=== PATIENT | female | born 2000 | race Caucasian/White ===

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

== ENCOUNTER 2018-11-08 18:25 | Emergency (ER) | payer SELFPAY ==
[~2018-11-08 18:25] MED LIST changes: +DICY10CA40 PO; +IBUP-1541 PO; -IBUP400T22 PO; +ONDA4TAB14 PO; +OSEL75CA23 PO; -OSLT75C PO
== END 2018-11-08 18:40 | disposition left against medical advice (07) ==
LOC: E/R 18:25
DX: Z53.21 Procedure and treatment not carried out due to patient leaving prior to being seen by health care provider (principal)

== ENCOUNTER 2018-11-08 19:55 | Inpatient (IN) | payer OTHER ==
[~2018-11-08] VITALS: Ht 174 cm; Wt 94.5 kg
[2018-11-08] MEDS ORDERED: SOD CHLORIDE 0.9% 1,000 ML IV STA (20:01)
[2018-11-08 20:06] VITALS: Ht 174 cm; Wt 94.5 kg
[2018-11-08] MEDS ORDERED: ACETAMINOPHEN 325 MG TAB PO PRN (20:30)
[2018-11-08] MEDS ORDERED: ONDANSETRON 4 MG INJ IV PRN (20:30)
--- NOTE | 2018-11-08 22:44 | ERD ---
ER Documentation Chief Complaint Chief Complaint PRATIK Cannon from [facility],miscarriage HPI Patient is a 18-year-old female with no medical problems who presents with vaginal bleeding. The patient was brought in by ambulance. She was seen initially at [facility] emergency department and had previously delivered at 19 weeks 1 day fetus that was nonviable. The ER doc admission delivered the placenta as well but they do not have OB admission to the patient was transferred for higher level of care. The patient said that she delivered the fetus at 7 [address] in [address] car. She is still having vaginal bleeding. She is a and her previous ended in miscarriage as well. ROS All systems reviewed and are negative except as per history of present illness. Medications Home Meds Discontinued Scripts Ondansetron (Ondansetron Odt) 4 Mg Tab.rapdis, 4 MG PO Q8 PRN for NAUSEA AND/OR VOMITING, #30 TAB Prov:AMERICA COUGHLIN NP 11/04/16 Ibuprofen* (Motrin*) 600 Mg Tab, 600 MG PO Q6H PRN for PAIN AND OR ELEVATED TEMP, #30 TAB Prov:AMERICA COUGHLIN NP 11/04/16 Dicyclomine HCl (Dicyclomine HCl) 10 Mg Capsule, 20 MG PO QID, #20 CAP Prov:AMERICA COUGHLIN NP 11/04/16 Acetaminophen* (Tylophen*) 500 Mg Capsule, 1 CAP PO Q6H PRN for PAIN AND OR ELEVATED TEMP, #20 CAP Prov:AMERICA COUGHLIN NP 10/31/16 Ibuprofen* (Motrin*) 600 Mg Tab, 600 MG PO Q6H PRN for PAIN AND OR ELEVATED TEMP, #30 TAB Prov:AMERICA COUGHLIN NP 10/31/16 Oseltamivir Phosphate* (Tamiflu*) 75 Mg Capsule, 75 MG PO BID for 5 Days, CAP Prov:AMERICA COUGHLIN GATE MORTISER OPERATOR 10/31/16 Ibuprofen* (Ibuprofen*) 400 Mg Tablet, 400 MG PO Q6H PRN for PAIN, #30 TAB Prov:CASSIDY BLANCA PA-C 11/21/15 Allergies Allergies: Coded Allergies: No Known Drug Allergies (Verified Allergy, Unknown, 11/08/18) PMhx/Soc Medical and Surgical Hx: pt denies Medical Hx, pt denies Surgical Hx History of Surgery: No Anesthesia Reaction: No Hx Neurological Disorder: No Hx Respiratory Disorders: No Hx Cardiac Disorders: No Hx Psychiatric Problems: No Hx Miscellaneous Medical Probl: No (previous miscarriage) Hx Alcohol Use: No Hx Substance Use: No Hx Tobacco Use: No Smoking Status: Never smoker FmHx Family History: No diabetes Physical Exam Vitals Vital Signs Date Temp Pulse Resp B/P (MAP) Pulse Ox O2 O2 Flow FiO2 Time Delivery Rate 11/08/18 113 26 124/71 99 Room Air 20:24 (88) 11/08/18 98.7 116 17 124/71 100 20:06 (88) Physical Exam Const: No acute distress Head: Atraumatic Eyes: Normal Conjunctiva ENT: Normal External Ears, Nose and Mouth. Neck: Full range of motion. No meningismus. Resp: Clear to auscultation bilaterally Cardio: Regular rate and rhythm, no murmurs Abd: Soft, non tender, non distended. Normal bowel sounds Skin: No petechiae or rashes Back: No midline or flank tenderness Ext: No cyanosis, or edema Neur: Awake and alert : Vaginal bleeding Result Diagram: 11/08/18 2017 11/08/18 2017 Results 24 hrs Laboratory Tests Test 11/08/18 20:17 White Blood Count 17.7 10^3/ul Red Blood Count 3.66 10^6/ul Hemoglobin 10.8 g/dl Hematocrit 31.6 % Mean Corpuscular Volume 86.3 fl Mean Corpuscular Hemoglobin 29.5 pg Mean Corpuscular Hemoglobin Concent 34.2 g/dl Red Cell Distribution Width 13.2 % Platelet Count 177 10^3/UL Mean Platelet Volume 10.2 fl Immature Granulocytes % 0.600 % Neutrophils % 86.1 % Lymphocytes % 8.5 % Monocytes % 4.5 % Eosinophils % 0.1 % Basophils % 0.2 % Nucleated Red Blood Cells % 0.0 /100WBC Immature Granulocytes # 0.100 10^3/ul Neutrophils # 15.3 10^3/ul Lymphocytes # 1.5 10^3/ul Monocytes # 0.8 10^3/ul Eosinophils # 0.0 10^3/ul Basophils # 0.0 10^3/ul Nucleated Red Blood Cells # 0.0 10^3/ul Sodium Level 139 mmol/L Potassium Level 3.8 mmol/L Chloride Level 106 mmol/L Carbon Dioxide Level 20 mmol/L Anion Gap 13 Blood Urea Nitrogen 10 mg/dl Creatinine 0.56 mg/dl Est Glomerular Filtrat Rate mL/min > 60 mL/min Glucose Level 90 mg/dl Calcium Level 8.8 mg/dl Total Bilirubin 0.3 mg/dl Direct Bilirubin 0.00 mg/dl Indirect Bilirubin 0.3 mg/dl Aspartate Amino Transf (AST/SGOT) 18 IU/L Alanine Aminotransferase (ALT/SGPT) 27 IU/L Alkaline Phosphatase 73 IU/L Total Protein 7.0 g/dl Albumin 3.7 g/dl Globulin 3.30 g/dl Albumin/Globulin Ratio 1.12 Beta HCG, Quantitative 5045.4 mIU/ml Current Medications Medications Dose Sig/Galen Start Time Status Last (Trade) Ordered Route PRN Stop Time Admin Dose Reason Admin Sodium 1,000 ml @ Q1H STAT 11/08/18 DC 11/08/18 Chloride 1,000 mls/hr IV 20:01 20:21 11/08/18 21:00 Ondansetron 4 mg BRIDGE ORDER 11/08/18 HCl (Zofran PRN IV 20:30 Inj) NAUSEA/VOMITI 11/09/18 20:29 NG 650 mg ER BRIDGE 11/08/18 Acetaminophen PRN PO 20:30 (Tylenol .MILD PAIN 11/09/18 20:29 Tab) 1-3 OR TEMP Procedures/MDM Ultrasound shows retained products of conception per radiology. Patient is a 18-year-old female who delivered a nonviable 19-week fetus and is now having hemorrhage. She has retained products of conception. She will be admitted to the care of Dr. Hester the OB doctor supervisor electronic testing. She will be admitted and given fluids. She will likely need D&C. Critical Care: Time: 35 minutes excluding all billable procedures. Treatments/Evaluations: Close monitoring and treatment of unstable vital signs, cardiorespiratory, and neurologic status, while maintaining tight balance of fluid, respiratory, and cardiac interventions. Departure Diagnosis: Primary Impression: hemorrhage hemorrhage type: unspecified Qualified Codes: O72.1 - Other immediate hemorrhage Additional Impression: Retained products of conception Condition: Serious TWYLA ALEXANDER MD Nov 08, 2018 22:44
[2018-11-09] VITALS (17 sets, daily range): BP systolic 102–117; BP diastolic 54–65; PULSE 74–122; RESP 14–88
[2018-11-09] MEDS ORDERED: MISOPROSTOL 200 MCG TAB PO ONE (01:00)
--- NOTE | 2018-11-09 05:34 | HP ---
Date/Time of Note Date/Time of Note DATE: 11/09/18 TIME: 05:16 Assessment/Plan VTE Prophylaxis SCD contraindicated: low risk/ambulating Pharmacological prophylaxis: other (Low risk she is ambulating) Pharm contraindication: low risk/ambulating, other Lines/Catheters IV Catheter Type (from Nrs): Saline Lock Assessment/Plan Assessment/Plan 18 years old 2 para [id number] with incomplete at the 19+ weeks. -Afebrile, vital signs stable -Blood type O+ -Treatment options with risk-benefit and alternatives discussed in detail with patient. She expressed understanding. Cytotec given 400 mcg given. Repeat ultrasound, if still there is product of conception, dilation and suction curettaged with be performed. Risks including but not limited to bleeding, infection, and injury to other organs if uterine perforation occurs(bowel, bladder, ureter, vessels, nerve) incomplete procedure, risk of scar and peritoneal formation, blood transfusion, blood transfusion related infection discussed with patient in detail. She expressed understanding. All of her questions answered. Result Diagram: 11/08/18201611/08/182016 Results 24hrs Laboratory Tests Test 11/08/18 20:17 White Blood Count 17.7 #H Red Blood Count 3.66 L Hemoglobin 10.8 L Hematocrit 31.6 L Mean Corpuscular Volume 86.3 Mean Corpuscular Hemoglobin 29.5 Mean Corpuscular Hemoglobin Concent 34.2 Red Cell Distribution Width 13.2 Platelet Count 177 Mean Platelet Volume 10.2 Immature Granulocytes % 0.600 H Neutrophils % 86.1 H Lymphocytes % 8.5 L Monocytes % 4.5 Eosinophils % 0.1 Basophils % 0.2 Nucleated Red Blood Cells % 0.0 Immature Granulocytes # 0.100 H Neutrophils # 15.3 H Lymphocytes # 1.5 Monocytes # 0.8 Eosinophils # 0.0 Basophils # 0.0 Nucleated Red Blood Cells # 0.0 Sodium Level 139 Potassium Level 3.8 Chloride Level 106 Carbon Dioxide Level 20 L Anion Gap 13 Blood Urea Nitrogen 10 Creatinine 0.56 Est Glomerular Filtrat Rate mL/min > 60 Glucose Level 90 Calcium Level 8.8 Total Bilirubin 0.3 Direct Bilirubin 0.00 Indirect Bilirubin 0.3 Aspartate Amino Transf (AST/SGOT) 18 Alanine Aminotransferase (ALT/SGPT) 27 Alkaline Phosphatase 73 Total Protein 7.0 Albumin 3.7 Globulin 3.30 H Albumin/Globulin Ratio 1.12 Beta HCG, Quantitative 5045.4 HPI/ROS Admit Date/Time Admit Date/Time 11/09/2018 Hx of Present Illness 18 years old 2 para 0020 presented to emergency department with vaginal bleeding. The patient was brought by ambulance. She was approximately 19 weeks , had vaginal bleeding last evening. She delivered a nonviable fetus at [address] in the [address] of [facility] emergency department. She delivered placenta at the emergency department there. There is no CERTIFIED ORTHOPTIST call at [facility], patient transferred for further evaluation to [facility]. She currently denies severe vaginal bleeding. She also states that the first also had spontaneous miscarriage at 7 weeks. She denies fever, nausea, vomiting, shortness of breath, chest pain, v isual changes. Ultrasound performed in the emergency department: The uterus measures 13.2 x 6.7 x 7.6 cm. The thickness of the endometrium equals 3.7 cm. The endometrium is heterogeneous and there is vascular flow in the endometrium suggestive of retained products of conception. The right ovary measures 2.5 x 1.8 x 2.7 cm and is unremarkable. The left ovary measures 2.5 x 1.8 x 3.1 cm and is unremarkable. Color flow and spectral analysis demonstrates arterial flow in both ovaries. No adnexal mass or free intrapelvic fluid is seen. IMPRESSION: Enlarged uterus. Thickened heterogeneous endometrium with vascular flow suggestive of retained products of conception. Please see above. ROS Additional Comments All the above system review, unremarkable except as written in history of physical illness PMH/Family/Social Past Medical History Medical History: no pertinent history Medications Current Medications Ondansetron HCl (Zofran Inj) 4 mg BRIDGE ORDER PRN IV NAUSEA/VOMITING; Start 11/08/18 at 20:30; Stop 11/09/18 at 20:29 Acetaminophen (Tylenol Tab) 650 mg ER BRIDGE PRN PO .MILD PAIN 1-3 OR TEMP; Start 11/08/18 at 20:30; Stop 11/09/18 at 20:29 Coded Allergies: No Known Drug Allergies (Verified Allergy, Unknown, 11/08/18) Past Surgical History Past Surgical Hx: no surgical history Family History Significant Family History: no pertinent family hx Social History Alcohol Use: none Smoking Status: Never smoker Drug Use: none Exam/Review of Systems Vital Signs Vitals Vital Signs Date Temp Pulse Resp B/P (MAP) Pulse Ox O2 O2 Flow FiO2 Time Delivery Rate 11/09/18 93 15 105/77 100 Room Air 04:23 (86) 11/08/18 98.7 20:06 Exam Constitutional: alert, oriented, well developed Psych: nl mood/affect Head: normocephalic Neck: supple, non-tender Respiratory: clear to auscultation Cardiovascular: regular rate and rhythm Gastrointestinal: soft, nl liver, spleen, non-tender Genitourinary - Female: other (External genitalia within normal limits, there was some blood on external genitalia. Vagina with bleeding and clot which was removed from cervix. Cervix normal, no lesions seen. The uterus 14 weeks, nontender. Adnexa no palpable mass bilateral.) Musculoskeletal: nl extremities to inspection Neurological: nl speech TOMEKA BARON Nov 09, 2018 05:29
[2018-11-09] MEDS ORDERED: SEVOFLURANE 15 MIN ONE (07:00)
[2018-11-09] MEDS ORDERED: CEFAZOLIN 1 GM INJ ONE (07:00)
[2018-11-09] MEDS ORDERED: LIDOCAINE 100 MG SYRINGE ONE (12:51)
[2018-11-09] MEDS ORDERED: PROPOFOL 100 ML ONE (12:51)
[2018-11-09] MEDS ORDERED: ONDANSETRON 4 MG INJ ONE (12:52)
[2018-11-09] MEDS ORDERED: DEXAMETHASONE 4 MG/ML 5 ML INJ ONE (12:52)
--- NOTE | 2018-11-09 12:56 | PREAC ---
Date/Time of Note Date/Time of Note DATE: 11/09/18 TIME: 12:55 Anesthesia Eval and Record Evaluation Time Pre-Procedure Interview DATE: 11/09/18 TIME: 12:55 Age 18 Sex female NPO: 8 hrs Preoperative diagnosis vaginal bleeding Planned procedure D&C Past Medical History Past Medical History: Includes GI: Obesity Surgery & Anesthesia Issues No known issue Meds Anticoagulation: No Beta Torri within 24 hr: No Reason Beta Torri not given: Pt. not on B-Torri Discontinued Scripts Ondansetron (Ondansetron Odt) 4 Mg Tab.rapdis, 4 MG PO Q8 PRN for NAUSEA AND/OR VOMITING, #30 TAB Prov:AMERICA COUGHLIN FRAMING INSPECTOR 11/04/16 Ibuprofen* (Motrin*) 600 Mg Tab, 600 MG PO Q6H PRN for PAIN AND OR ELEVATED TEMP, #30 TAB Prov:AMERICA COUGHLIN FRAMING INSPECTOR 11/04/16 Dicyclomine HCl (Dicyclomine HCl) 10 Mg Capsule, 20 MG PO QID, #20 CAP Prov:AMERICA COUGHLIN FRAMING INSPECTOR 11/04/16 Acetaminophen* (Tylophen*) 500 Mg Capsule, 1 CAP PO Q6H PRN for PAIN AND OR ELEVATED TEMP, #20 CAP Prov:AMERICA COUGHLIN FRAMING INSPECTOR 10/31/16 Ibuprofen* (Motrin*) 600 Mg Tab, 600 MG PO Q6H PRN for PAIN AND OR ELEVATED TEMP, #30 TAB Prov:AMERICA COUGHLIN NP 10/31/16 Oseltamivir Phosphate* (Tamiflu*) 75 Mg Capsule, 75 MG PO BID for 5 Days, CAP Prov:AMERICA COUGHLIN FRAMING INSPECTOR 10/31/16 Ibuprofen* (Ibuprofen*) 400 Mg Tablet, 400 MG PO Q6H PRN for PAIN, #30 TAB Prov:CASSIDY BLANCA PA-C 11/21/15 Current Medications Ondansetron HCl (Zofran Inj) 4 mg BRIDGE ORDER PRN IV NAUSEA/VOMITING; Start 11/08/18 at 20:30; Stop 11/09/18 at 20:29 Acetaminophen (Tylenol Tab) 650 mg ER BRIDGE PRN PO .MILD PAIN 1-3 OR TEMP; Start 11/08/18 at 20:30; Stop 11/09/18 at 20:29 Cefazolin Sodium/ Dextrose 50 ml @ 100 mls/hr PRE-OP ONCE IVPB ; Start 11/09/18 at 13:00; Stop 11/09/18 at 13:29; Status UNV Meds reviewed: Yes Allergies Coded Allergies: No Known Drug Allergies (Verified Allergy, Unknown, 11/08/18) Allergies Reviewed: Yes Labs/Studies Labs Reviewed: Reviewed by anesthesiologist Result Diagram: 11/08/18201611/08/182016 Laboratory Tests 11/08/18 20:17 Blood Bank Test 11/08/18 20:17 Antibody Screen NEGATIVE Blood Type O POSITIVE test: Positive Pre-procedure Exam Last vitals Vital Signs Date Temp Pulse Resp B/P (MAP) Pulse Ox O2 O2 Flow FiO2 Time Delivery Rate 11/09/18 99.2 96 18 104/59 100 Room Air 07:30 (74) Airway: Adequate mouth opening Mallampati: Mallampati II Teeth: Normal Lung: Normal Heart: Normal ASA Physical Status ASA physical status: 2 Emergency: None Planned Anesthetic General/MAC: ETT Pre-operative Attestations Prior to commencing anesthesia and surgery, the patient was re-evaluated, there was verification of: *The patient's identity *The results of appropriate recent lab work and preoperative vital signs *The above evaluation not changing prior to induction *Anesthetic plan, risk benefits, alternative and complications discussed with patient/family; questions answered; patient/family understands, accepts and wishes to proceed. SHAE WILEY Nov 09, 2018 12:56
[2018-11-09] MEDS ORDERED: CEFAZOLIN 2 GM/50 ML (PMX) 50 ML IVPB ONE (13:00)
[2018-11-09] MEDS ORDERED: MIDAZOLAM 1 MG/ML 2 ML INJ ONE (13:25)
[2018-11-09] MEDS ORDERED: FENTAnyl 50 MCG/ML VIAL ONE ×2 (13:25→14:15)
[2018-11-09] MEDS ORDERED: HYDROmorphONE 1 MG/5 ML IV SYRINGE IV PRN ×2 (13:30)
[2018-11-09] MEDS ORDERED: MEPERIDINE 25 MG INJ IV PRN (13:30)
[2018-11-09] MEDS ORDERED: LABETALOL HCL 20MG INJ IV PRN (13:30)
[2018-11-09] MEDS ORDERED: METOCLOPRAMIDE 10 MG INJ IV PRN (13:30)
[2018-11-09] MEDS ORDERED: ONDANSETRON 4 MG INJ IV PRN (13:30)
[2018-11-09] MEDS ORDERED: hydrALAzine 20 MG INJ IV PRN (13:30)
[2018-11-09] MEDS ORDERED: FENTAnyl 50 MCG/ML VIAL IV PRN ×2 (13:30)
[2018-11-09] MEDS ORDERED: MISOPROSTOL 200 MCG TAB VAG ONE (15:00)
--- NOTE | 2018-11-09 15:09 | PAC ---
Date/Time of Note Date/Time of Note DATE: 11/09/18 TIME: 15:08 Post-Anesthesia Notes Post-Anesthesia Note Last documented vital signs Vital Signs Date Temp Pulse Resp B/P (MAP) Pulse Ox O2 O2 Flow FiO2 Time Delivery Rate 11/09/18 100 95 20 125/60 100 Room Air 1508 Activity: WNL Respiratory function: WNL Cardiovascular function: WNL Mental status: Baseline Pain reasonably controlled: Yes Hydration appropriate: Yes Nausea/Vomiting absent: Yes LEXIE BARFIELD DO Nov 09, 2018 15:09
--- NOTE | 2018-11-09 20:45 | OPR ---
Date/Time of Note Date/Time of Note DATE: 11/09/18 TIME: 20:38 Operative Report Procedure Date: Nov 09, 2018 Preoperative Diagnosis 18 years old 2 para 0-0-1-0 with incomplete Postoperative Diagnosis 18 years old 2 para 0-0-1-0 with incomplete Operation/Procedure Performed Suction curettage Surgeon see signature line Other Sports Official None Anesthesia Type: general Anesthesiologist: LEXIE BARFIELD DO Estimated Blood Loss: other (500 mL) Transfusion none Specimen Product of conception Grafts/Implants none Tubes/Drains None Complications none Pt Condition Post Procedure: stable Disposition: PACU Indications INDICATION AND HISTORY: 18 years old 2 para 0-0-1-0 with incomplete . Treatment options including medical treatment with Cytotec and dilation with suction curettage were discussed in detail with the patient and her partner. She would like to have dilation and suction curettage. Risks including but not limited to bleeding, infection, uterine perforation, injury to other organs, bowel, bladder, ureter, vessel and nerves if uterine perforation occurs, blood transfusion, blood transfusion transfusion-related infection, scar formation, risk of anesthesia and other indicated surgery were discussed in detail with the patient. She expressed understanding. All of the questions were answered. She signed the informed consent. Procedure Description FINDINGS: Exam under anesthesia: External genitalia normal. Vagina with moderate bleeding. Cervix: open os with no lesion. Uterus: 18 weeks, mobile, anteverted. Adnexa: No palpable mass, bilateral. PROCEDURE IN DETAIL: The patient was identified and the procedure verified. She was given general anesthesia without difficulty and placed in a modified dorsal lithotomy. The patient was examined under general anesthesia as noted above. The patient was then prepped and draped in the normal sterile fashion. The bladder was drained by insertion of straight catheter. Then, a long weighted speculum was used to visualize the cervix, which was grasped on anterior lip with a single tooth tenaculum. The cervix was already dilated to number 6, cervix was dilated more to #10. Then a #10 suction curettage was introduced into the uterine cavity. Suction curettage was performed in a 360-degree fashion until no further tissue was obtained. There was approximately 500 mL bleeding. Then a large sharp curette was gently introduced into the uterine cavity until a gritty texture was felt in all 4 quadrants. Again, the suction curettage was introduced to remove the remaining clot and debris, no further tissue was obtained. The specimen was sent to pathology. Tenaculum was removed. There was no bleeding from tenaculum site. The weighted speculum was removed. The patient tolerated the procedure well. She was extubated in the operating room and transferred to the recovery room in stable condition. TOMEKA BARON Nov 09, 2018 20:45
--- NOTE | 2018-11-09 20:48 | DS ---
Date/Time of Note Date/Time of Note DATE: 11/09/18 TIME: 20:45 Discharge Summary Admission/Discharge Info Admit Date/Time Nov 08, 2018 at 20:02 Discharge Date/Time 11/09/2018 Discharge Diagnosis Incomplete Patient Condition: Stable Consults None Procedures Suction curettage Hx of Present Illness 18 years old 2 para 0020 presented to emergency department with vaginal bleeding. The patient was brought by ambulance. She was approximately 19 weeks , had vaginal bleeding last evening. She delivered a nonviable fetus at [address] in the [address] of [facility] emergency department. She delivered placenta at the emergency department there. There is no JET DYEING MACHINE TENDER call at [facility], patient transferred for further evaluation to [facility]. She currently denies severe vaginal bleeding. She also states that the first also had spontaneous miscarriage at 7 weeks. She denies fever, nausea, vomiting, shortness of breath, chest pain, visual changes. Ultrasound performed in the emergency department: The uterus measures 13.2 x 6.7 x 7.6 cm. The thickness of the endometrium equals 3.7 cm. The endometrium is heterogeneous and there is vascular flow in the endometrium suggestive of retained products of conception. The right ovary me asures 2.5 x 1.8 x 2.7 cm and is unremarkable. The left ovary measures 2.5 x 1.8 x 3.1 cm and is unremarkable. Color flow and spectral analysis demonstrates arterial flow in both ovaries. No adnexal mass or free intrapelvic fluid is seen. IMPRESSION: Enlarged uterus. Thickened heterogeneous endometrium with vascular flow suggestive of retained products of conception. Please see above. Hospital Course 18 years old 2 para 0-0-1-0 with incomplete . Treatment options including medical treatment with Cytotec and dilation with suction curettage discussed in detail with the patient. She initially chooses to have Cytotec. Cytotec 400 mcg p.o. given. Repeat ultrasound was reviewed with the ED there is productive conception. Patient decided to have suction curettage. Procedure performed without complication. There was no further bleeding patient. Patient discharged home in stable condition [facility] follow-up in 1 weeks with her primary newspaper carriers supervisor. I strongly recommend have follow-up repeat beta-hCG in 1 week. Home Meds Discontinued Scripts Ondansetron (Ondansetron Odt) 4 Mg Tab.rapdis, 4 MG PO Q8 PRN for NAUSEA AND/OR VOMITING, #30 TAB Prov:AMERICA COUGHLIN HOG RINGER 11/04/16 Ibuprofen* (Motrin*) 600 Mg Tab, 600 MG PO Q6H PRN for PAIN AND OR ELEVATED TEMP, #30 TAB Prov:AMERICA COUGHLIN HOG RINGER 11/04/16 Dicyclomine HCl (Dicyclomine HCl) 10 Mg Capsule, 20 MG PO QID, #20 CAP Prov:AMERICA COUGHLIN HOG RINGER 11/04/16 Acetaminophen* (Tylophen*) 500 Mg Capsule, 1 CAP PO Q6H PRN for PAIN AND OR ELEVATED TEMP, #20 CAP Prov:AMERICA COUGHLIN HOG RINGER 10/31/16 Ibuprofen* (Motrin*) 600 Mg Tab, 600 MG PO Q6H PRN for PAIN AND OR ELEVATED TEMP, #30 TAB Prov:AMERICA COUGHLIN HOG RINGER 10/31/16 Oseltamivir Phosphate* (Tamiflu*) 75 Mg Capsule, 75 MG PO BID for 5 Days, CAP Prov:AMERICA COUGHLIN HOG RINGER 10/31/16 Ibuprofen* (Ibuprofen*) 400 Mg Tablet, 400 MG PO Q6H PRN for PAIN, #30 TAB Prov:CASSIDY BLANCA PA-C 11/21/15 Primary Care Provider Dixie Serna MD Time spent on discharge: > 30 minutes Pending Labs Laboratory Tests Test 11/09/18 09:24 Lab Scanned Report LAB [id number] TOMEKA BARON Nov 09, 2018 20:48
[2018-11-10 01:57] VITALS: BP 110/62; PULSE 92; RESP 20
[2018-11-10 08:32] VITALS: BP 106/56; PULSE 79; RESP 18
== END 2018-11-10 12:55 | disposition home or self-care (01) | DRG 779 ==
LOC: E/R 19:55 → MS1 20:02 → CANBEDREQ 11-09 03:40
PROVIDERS: ADMIT Obstetrics & Gynecology; ATTEND Obstetrics & Gynecology
PROC: 10D17Z9 Manual Extraction of Products of Conception, Retained, Via Natural or Artificial Opening (ICD-10-PCS; principal; 2018-11-09 13:30)
DX: O03.1 Delayed or excessive hemorrhage following incomplete spontaneous abortion (principal); Z87.59 Personal history of other complications of pregnancy, childbirth and the puerperium
CPT/HCPCS: 76856; 80053; 84702; 85025; 86850; 86900; 86901; 88305; 88307; J0690; J1100; J2001; J2250; J2405; J3010; J7030